=== PATIENT | male | born 1930 | race Caucasian/White ===

== ENCOUNTER 2016-12-12 09:44 | Inpatient (IN) | payer MEDICARE, OTHER ==
[~2016-12-12] VITALS: Ht 177.8 cm; Wt 93.6 kg
[2016-12-12] MEDS ORDERED: SODIUM CHLORIDE FLUSH 10ML SYR IVF ONE (10:30)
[2016-12-12 10:36] LABS: HEMATOCRIT 40.6 % (39.2-51.8); HEMOGLOBIN 13.2 g/dL (13.7-18.0); WHITE BLOOD COUNT 10.7 x10^3/uL (3.4-10)
[2016-12-12 10:48] LABS: ASPARTATE AMINO TRANSFERASE 99 U/L (15-37); BLOOD UREA NITROGEN 17 mg/dL (7-18)
[2016-12-12 10:53] LABS: IS PT STATUS REG ER OR PRE ER? YES
[2016-12-12] MEDS ORDERED: ASPI-496 PO (11:17)
[2016-12-12] MEDS ORDERED: SIMV40TA3 PO (11:17)
[2016-12-12] MEDS ORDERED: UMEC62.5 INH (11:17)
[2016-12-12] MEDS ORDERED: GUAI-110 PO (11:17)
[2016-12-12] MEDS ORDERED: LEVO150T PO (11:17)
[2016-12-12] MEDS ORDERED: AMLO10TA2 PO (11:17)
[2016-12-12] MEDS ORDERED: FLUT1DIS IH (11:17)
[2016-12-12] MEDS ORDERED: CEFTRIAXONE PMX 1GM/50ML 50 ML ONE (12:29)
[2016-12-12] MEDS ORDERED: AZITHROMYCIN 500 MG in SODIUM CHLORIDE 0.9% 250 ML IV ONE (12:30)
[2016-12-12] MEDS ORDERED: ALBUTEROL SULFATE 2.5 MG/3 ML NPPB ONE (12:30)
[2016-12-12] MEDS ORDERED: CEFTRIAXONE PMX 1GM/50ML 50 ML IVPB ONE (12:30)
[2016-12-12] MEDS ORDERED: methylPREDNISolone SOD SUCC 125 MG/2 ML IVP ONE (12:30)
[2016-12-12] MEDS ORDERED: methylPREDNISolone SOD SUCC 125 MG/2 ML ONE (12:30)
[2016-12-12] MEDS ORDERED: ALBUTEROL SULFATE 2.5 MG/3 ML ONE (12:52)
[2016-12-12] MEDS ORDERED: FUROSEMIDE 40 MG/4 ML IV ONE (13:00)
[2016-12-12] MEDS ORDERED: FUROSEMIDE 40 MG/4 ML ONE (13:02)
[2016-12-12] MEDS ORDERED: ONDANSETRON 2MG/ML, 2ML IVPush PRN (14:30)
[2016-12-12] MEDS ORDERED: ENALAPRILAT 1.25 MG/ML, 2ML IVPush PRN (14:30)
[2016-12-12] MEDS ORDERED: ONDANSETRON ODT 4 MG PO PRN (14:30)
[2016-12-12] MEDS ORDERED: LORazepam 0.5MG TABLET PO PRN (14:30)
[2016-12-12 15:13] VITALS: BP 128/79
[2016-12-12] MEDS: ENOXAPARIN 40 MG/0.4 ML SQ SCH (16:21)
[2016-12-12] MEDS: DOXYCYCLINE 100 MG in DEXTROSE 5% 250 ML IV SCH (16:21)
[2016-12-12] MEDS: GUAIFENESIN 200 MG TABLET PO SCH ×2 (16:21→20:47)
[2016-12-12] MEDS: methylPREDNISolone SOD SUCC 125 MG/2 ML IVPush SCH (17:54)
[2016-12-12] MEDS ORDERED: OMNIPAQUE 350 MG/ML, 100ML BOTTLE ONE (18:00)
[2016-12-12] MEDS: ALBUTEROL/IPRATROPIUM 2.5MG/0.5MG, 3 ML NPPB SCH ×2 (18:00→22:00)
[2016-12-12 18:26] VITALS: BP 132/78
[2016-12-12] MEDS: SIMVASTATIN 40 MG TABLET PO SCH (20:47)
[2016-12-13 01:04] VITALS: BP 111/60
[2016-12-13] MEDS: methylPREDNISolone SOD SUCC 125 MG/2 ML IVPush SCH ×3 (03:48→22:08)
[2016-12-13] MEDS: DOXYCYCLINE 100 MG in DEXTROSE 5% 250 ML IV SCH ×2 (03:49→16:28)
[2016-12-13] MEDS: LEVOTHYROXINE 150 MCG TABLET PO SCH (05:48)
[2016-12-13] MEDS: GUAIFENESIN 200 MG TABLET PO SCH ×4 (05:49→20:17)
[2016-12-13 05:59] LABS: HEMATOCRIT 37.9 % (39.2-51.8); HEMOGLOBIN 12.6 g/dL (13.7-18.0); WHITE BLOOD COUNT 11.3 x10^3/uL (3.4-10)
[2016-12-13 06:27] LABS: ASPARTATE AMINO TRANSFERASE 43 U/L (15-37); BLOOD UREA NITROGEN 16 mg/dL (7-18)
[2016-12-13 06:37] VITALS: BP 133/72
[2016-12-13] MEDS: ALBUTEROL/IPRATROPIUM 2.5MG/0.5MG, 3 ML NPPB SCH ×5 (07:35→23:20)
[2016-12-13] MEDS: ASPIRIN 81 MG TABLET EC PO SCH (07:55)
[2016-12-13] MEDS: THIAMINE 100MG TABLET PO SCH (07:55)
[2016-12-13] MEDS: FOLIC ACID 1 MG TABLET PO SCH (07:55)
[2016-12-13] MEDS ORDERED: FUROSEMIDE 20 MG/2 ML IV SCH (09:00)
[2016-12-13] MEDS: FUROSEMIDE 20 MG/2 ML IV SCH ×2 (09:00→20:17)
[2016-12-13] MEDS ORDERED: CEFTRIAXONE PMX 1GM/50ML 50 ML IV SCH (13:00)
[2016-12-13 13:09] VITALS: BP 119/63
[2016-12-13] MEDS: ENOXAPARIN 40 MG/0.4 ML SQ SCH (16:29)
[2016-12-13 18:57] VITALS: BP 147/75
[2016-12-13] MEDS: SIMVASTATIN 40 MG TABLET PO SCH (20:17)
[2016-12-14 03:12] VITALS: BP 127/72
[2016-12-14] MEDS: DOXYCYCLINE 100 MG in DEXTROSE 5% 250 ML IV SCH (04:12)
[2016-12-14] MEDS: methylPREDNISolone SOD SUCC 125 MG/2 ML IVPush SCH (05:52)
[2016-12-14] MEDS: GUAIFENESIN 200 MG TABLET PO SCH ×4 (05:52→20:28)
[2016-12-14] MEDS: LEVOTHYROXINE 150 MCG TABLET PO SCH (05:52)
[2016-12-14] MEDS: ALBUTEROL/IPRATROPIUM 2.5MG/0.5MG, 3 ML NPPB SCH ×5 (06:00→21:42)
[2016-12-14 06:13] LABS: HEMATOCRIT 39.7 % (39.2-51.8); HEMOGLOBIN 13.1 g/dL (13.7-18.0); WHITE BLOOD COUNT 15.8 x10^3/uL (3.4-10)
[2016-12-14 06:23] LABS: ASPARTATE AMINO TRANSFERASE 53 U/L (15-37); BLOOD UREA NITROGEN 22 mg/dL (7-18)
[2016-12-14 07:26] VITALS: BP 116/70
[2016-12-14] MEDS: THIAMINE 100MG TABLET PO SCH (08:04)
[2016-12-14] MEDS: FOLIC ACID 1 MG TABLET PO SCH (08:04)
[2016-12-14] MEDS: FUROSEMIDE 20 MG/2 ML IV SCH (08:04)
[2016-12-14] MEDS: ASPIRIN 81 MG TABLET EC PO SCH (08:04)
[2016-12-14 14:00] VITALS: BP 129/66
[2016-12-14] MEDS: ENOXAPARIN 40 MG/0.4 ML SQ SCH (16:26)
[2016-12-14 20:00] VITALS: BP 135/77
[2016-12-14] MEDS: SIMVASTATIN 40 MG TABLET PO SCH (20:28)
[2016-12-15 01:49] VITALS: BP 127/80
[2016-12-15] MEDS: LEVOTHYROXINE 150 MCG TABLET PO SCH (05:59)
[2016-12-15] MEDS: GUAIFENESIN 200 MG TABLET PO SCH ×4 (05:59→21:20)
[2016-12-15] MEDS: ALBUTEROL/IPRATROPIUM 2.5MG/0.5MG, 3 ML NPPB SCH ×5 (06:00→22:00)
[2016-12-15 07:53] VITALS: BP 130/85
[2016-12-15] MEDS ORDERED: SODIUM CHLORIDE 0.9% 1,000 ML IV ONE (09:10)
[2016-12-15] MEDS: ASPIRIN 81 MG TABLET EC PO SCH (09:35)
[2016-12-15] MEDS: FOLIC ACID 1 MG TABLET PO SCH (09:35)
[2016-12-15] MEDS: THIAMINE 100MG TABLET PO SCH (09:35)
[2016-12-15] MEDS: DOCUSATE 100 MG CAPSULE PO PRN ×2 (09:46→21:20)
[2016-12-15 14:00] VITALS: BP 156/80
[2016-12-15] MEDS: ENOXAPARIN 40 MG/0.4 ML SQ SCH (16:00)
[2016-12-15 20:00] VITALS: BP 146/84
[2016-12-15] MEDS: SIMVASTATIN 40 MG TABLET PO SCH (21:20)
[2016-12-16 02:04] VITALS: BP 127/81
[2016-12-16] MEDS: GUAIFENESIN 200 MG TABLET PO SCH ×4 (05:18→21:26)
[2016-12-16] MEDS: LEVOTHYROXINE 150 MCG TABLET PO SCH (05:19)
[2016-12-16 05:34] LABS: HEMATOCRIT 38.9 % (39.2-51.8); HEMOGLOBIN 12.8 g/dL (13.7-18.0); WHITE BLOOD COUNT 10.6 x10^3/uL (3.4-10)
[2016-12-16] MEDS: ALBUTEROL/IPRATROPIUM 2.5MG/0.5MG, 3 ML NPPB SCH ×4 (06:00→22:00)
[2016-12-16 08:05] VITALS: BP 163/83
[2016-12-16] MEDS: ASPIRIN 81 MG TABLET EC PO SCH (08:06)
[2016-12-16] MEDS: FOLIC ACID 1 MG TABLET PO SCH (08:06)
[2016-12-16] MEDS: THIAMINE 100MG TABLET PO SCH (08:06)
[2016-12-16] MEDS ORDERED: VERAPAMIL 2.5 MG/ML, 2ML ONE ×2 (11:43→11:56)
[2016-12-16] MEDS ORDERED: BIVALIRUDIN 250 MG ONE ×2 (11:43→11:56)
[2016-12-16] MEDS ORDERED: FENTANYL PF 100 MCG/2ML ONE ×2 (11:43→11:55)
[2016-12-16] MEDS ORDERED: HEPARIN 1,000 UNITS/ML, 10ML ONE ×2 (11:43→11:56)
[2016-12-16] MEDS ORDERED: NITROGLYCERIN 5 MG/ML, 10ML ONE ×2 (11:43→11:56)
[2016-12-16] MEDS ORDERED: LIDOCAINE 2%, 20ML ONE ×2 (11:43→11:56)
[2016-12-16] MEDS ORDERED: MIDAZOLAM 1 MG/ML, 5ML ONE ×2 (11:43→11:56)
[2016-12-16] MEDS ORDERED: TICAGRELOR 90 MG TABLET ONE (11:56)
[2016-12-16 13:16] VITALS: BP 145/84
[2016-12-16 18:55] VITALS: BP 130/84
[2016-12-16] MEDS: SIMVASTATIN 40 MG TABLET PO SCH (21:00)
[2016-12-16] MEDS: ENOXAPARIN 40 MG/0.4 ML SQ SCH (21:27)
[2016-12-17] VITALS (7 sets, daily range): BP systolic 94–127; BP diastolic 59–74
[2016-12-17] MEDS: GUAIFENESIN 200 MG TABLET PO SCH ×4 (06:16→21:11)
[2016-12-17] MEDS: LEVOTHYROXINE 150 MCG TABLET PO SCH (06:17)
[2016-12-17] MEDS: ALBUTEROL/IPRATROPIUM 2.5MG/0.5MG, 3 ML NPPB SCH ×5 (07:25→22:45)
[2016-12-17] MEDS: THIAMINE 100MG TABLET PO SCH (08:18)
[2016-12-17] MEDS: FOLIC ACID 1 MG TABLET PO SCH (08:18)
[2016-12-17] MEDS: ASPIRIN 81 MG TABLET EC PO SCH (08:18)
[2016-12-17] MEDS ORDERED: POTASSIUM CHLORIDE 20 MEQ TAB.ER.PRT PO ONE (09:30)
[2016-12-17] MEDS ORDERED: FUROSEMIDE 20 MG/2 ML IV ONE (10:00)
[2016-12-17 15:23] LABS: BLOOD UREA NITROGEN 28 mg/dL (7-18)
[2016-12-17] MEDS ORDERED: ALBUMIN HUMAN 25% 50 ML IV ONE (17:30)
[2016-12-17] MEDS ORDERED: FUROSEMIDE 40 MG/4 ML IV ONE (18:00)
[2016-12-17] MEDS: DOCUSATE 100 MG CAPSULE PO PRN (18:02)
[2016-12-17] MEDS ORDERED: ENOXAPARIN 40 MG/0.4 ML SQ SCH (20:00)
[2016-12-17] MEDS: SIMVASTATIN 40 MG TABLET PO SCH (21:11)
[2016-12-18 01:30] VITALS: BP 119/61
[2016-12-18] MEDS: GUAIFENESIN 200 MG TABLET PO SCH ×2 (05:06→11:58)
[2016-12-18] MEDS: LEVOTHYROXINE 150 MCG TABLET PO SCH (05:06)
[2016-12-18 06:00] LABS: BLOOD UREA NITROGEN 24 mg/dL (7-18)
[2016-12-18 06:02] LABS: HEMATOCRIT 45.9 % (39.2-51.8); HEMOGLOBIN 15.1 g/dL (13.7-18.0)
[2016-12-18 07:05] VITALS: BP 132/77
[2016-12-18] MEDS: ALBUTEROL/IPRATROPIUM 2.5MG/0.5MG, 3 ML NPPB SCH ×3 (07:35→14:30)
[2016-12-18] MEDS: FOLIC ACID 1 MG TABLET PO SCH (09:43)
[2016-12-18] MEDS: ASPIRIN 81 MG TABLET EC PO SCH (09:43)
[2016-12-18] MEDS: THIAMINE 100MG TABLET PO SCH (09:43)
[2016-12-18 12:27] VITALS: BP 117/71
[2016-12-18] MEDS ORDERED: TRAM50TA2 PO (15:25)
== END 2016-12-18 15:40 | disposition left against medical advice (07) | DRG 286 ==
LOC: ED 12:27 → EDIP 12:28 → ED 12:53 → 4EST 15:15 → 4WST 12-13 21:29 → 5SO 12-16 07:26
PROVIDERS: ADMIT Internal Medicine; ATTEND Internal Medicine
PROC: 4A023N7 Measurement of Cardiac Sampling and Pressure, Left Heart, Percutaneous Approach (ICD-10-PCS; principal; 2016-12-16)
PROC: B2111ZZ Fluoroscopy of Multiple Coronary Arteries using Low Osmolar Contrast (ICD-10-PCS; 2016-12-16)
DX: I35.0 Nonrheumatic aortic (valve) stenosis (principal); J96.01 Acute respiratory failure with hypoxia; J15.9 Unspecified bacterial pneumonia; E43 Unspecified severe protein-calorie malnutrition; J44.0 Chronic obstructive pulmonary disease with (acute) lower respiratory infection; M48.54XA Collapsed vertebra, not elsewhere classified, thoracic region, initial encounter for fracture; D53.9 Nutritional anemia, unspecified; Z68.29 Body mass index [BMI] 29.0-29.9, adult; E78.5 Hyperlipidemia, unspecified; E89.0 Postprocedural hypothyroidism; I11.0 Hypertensive heart disease with heart failure; I25.10 Atherosclerotic heart disease of native coronary artery without angina pectoris; I70.0 Atherosclerosis of aorta; R73.9 Hyperglycemia, unspecified; I50.9 Heart failure, unspecified; T38.0X5A Adverse effect of glucocorticoids and synthetic analogues, initial encounter; Z87.891 Personal history of nicotine dependence
CPT/HCPCS: 36415; 71010; 71020; 71275; 80048; 80053; 82607; 82746; 83036; 83605; 83735; 83880; 84100; 84145; 84443; 84484; 85025; 85610; 87040; 87070; 87205; 93005; 93306; 93454; 93880; 94060; 94640; 94726; 94729; 96365; 96366; 96368; 96375; 99156; 99157; C1760; C1894; J0456; J0583; J0696; J1644; J1650; J1940; J2250; J3010; J3490; J7060; J7620; P9047; Q9967; J2930; J7030; J7050; J7512

== ENCOUNTER → 2016-12-30 | Outpatient (CLI) | payer MEDICARE, OTHER ==
[~2016-12-30] MED LIST: AMLO10TA2 PO; ASPI-496 PO; FLUT1DIS IH; GUAI-110 PO; LEVO150T PO; SIMV40TA3 PO; TRAM50TA2 PO; UMEC62.5 INH
== END | disposition home or self-care (01) ==
LOC: CFH 14:00
PROVIDERS: ATTEND Nurse Practitioner Family
DX: J90 Pleural effusion, not elsewhere classified (principal); I25.10 Atherosclerotic heart disease of native coronary artery without angina pectoris; I51.7 Cardiomegaly; R91.8 Other nonspecific abnormal finding of lung field; Z87.81 Personal history of (healed) traumatic fracture
CPT/HCPCS: 71020

== ENCOUNTER → 2017-04-09 | Outpatient (CLI) | payer MEDICARE, OTHER | END | disposition home or self-care (01) | LOC: CFH 07:24 | PROVIDERS: ATTEND Internal Medicine Cardiovascular Disease | DX: I08.1 Rheumatic disorders of both mitral and tricuspid valves (principal); J44.9 Chronic obstructive pulmonary disease, unspecified; Z95.2 Presence of prosthetic heart valve; Z87.891 Personal history of nicotine dependence | CPT/HCPCS: 93306 ==

== ENCOUNTER → 2017-12-16 | Outpatient (CLI) | payer MEDICARE, OTHER | END | disposition home or self-care (01) | LOC: CVU 09:30 | PROVIDERS: ATTEND Internal Medicine Cardiovascular Disease | DX: I65.23 Occlusion and stenosis of bilateral carotid arteries (principal); J44.9 Chronic obstructive pulmonary disease, unspecified; I73.9 Peripheral vascular disease, unspecified | CPT/HCPCS: 93880 ==

== ENCOUNTER → 2019-06-11 | Outpatient (CLI) | payer MEDICARE, OTHER ==
[~2019-06-11] MED LIST changes: -AMLO10TA2 PO; +AMLO10TA8 PO
== END | disposition home or self-care (01) ==
LOC: CFH 09:31
PROVIDERS: ATTEND Family Medicine
DX: S22.059A Unspecified fracture of T5-T6 vertebra, initial encounter for closed fracture (principal); I25.10 Atherosclerotic heart disease of native coronary artery without angina pectoris; J43.9 Emphysema, unspecified; J98.4 Other disorders of lung; X58.XXXA Exposure to other specified factors, initial encounter; Y93.89 Activity, other specified; Y92.89 Other specified places as the place of occurrence of the external cause; Y99.8 Other external cause status
CPT/HCPCS: 71250

== ENCOUNTER → 2019-06-18 | Outpatient (CLI) | payer MEDICARE, OTHER ==
[~2019-06-18] MED LIST changes: +SIMV40TA20 PO; -SIMV40TA3 PO
== END | disposition home or self-care (01) ==
LOC: CVU 07:13
PROVIDERS: ATTEND Internal Medicine Cardiovascular Disease
DX: I65.23 Occlusion and stenosis of bilateral carotid arteries (principal); I10 Essential (primary) hypertension; E78.5 Hyperlipidemia, unspecified; Z95.2 Presence of prosthetic heart valve
CPT/HCPCS: 93880